=== PATIENT | male | born 1990 | race Caucasian/White ===

== ENCOUNTER 2020-11-29 13:59 | Emergency (ER) | payer OTHER ==
[~2020-11-29] VITALS: Ht 175.3 cm; Wt 73.0 kg
--- NOTE | 2020-11-29 14:04 | PHYS DOC ---
Past History Past Medical History: No Pertinent History Past Surgical History: No Surgical History Smoking: Non-smoker Alcohol Use: Occasionally Drug Use: Marijuana Adult General Chief Complaint Chief Complaint: MECHANICAL FALL HPI HPI Patient is a 30-year-old male presenting via POV for a fall. Patient who is otherwise healthy with no other medical issues or daily medications was getting out of his car at [facility] with sister and was vaping when he fell and hit his head very hard per report. The actual fall was not witnessed but sister denies any obvious areas where he could have suffered a mechanical fall. Patient was subsequently put back in car and transported to our ER for evaluation. Patient reports focal pain to posterior head; otherwise, no other symptoms. No vision changes, chest pain, shortness of breath, abdominal pain, dysuria, bladder or bowel incontinence, no change in motor or sensory or neuro function. He is not on any blood thinners, denies tobacco alcohol and illicit drug use and reports he was vaping an unknown cartridge that he bought at local smoke shop. Sister denies any significant family history of congenital and/or other pertinent illnesses Review of Systems Review of Systems Fourteen body systems of review of systems have been reviewed. See HPI for pert inent positives and negative responses, other ghotra all other systems are negative, non-pertinent or non-contributory Allergies Allergies Allergies Coded Allergies Type Severity Reaction Last Updated Verified No Known Drug Allergies 01/23/16 No Physical Exam Physical Exam Constitutional: Pt is oriented to person but not place or time. No obvious distress but looks pale and lethargic HEENT: Head: Normocephalic and atraumatic without any palpable abnormalities such as crepitus or lacerations External ears unremarkable negative mandujano sign Conjunctivae and EOM are normal. Pupils are equal, round, and reactive to light. Oropharynx is clear and moist. No hematomas or lacerations or abrasions to face or scalp OP clear, no blood, no malocclusion, dentition intact Nares clear, no nasal septal hematoma Midface stable Neck: C-spine midline tender without appreciable step-offs Cardiovascular: Normal rate, regular rhythm and normal heart sounds. Pulmonary/Chest: Effort normal and breath sounds normal. No respiratory distress. No wheezes. CTA bilaterally Abdominal: Soft. Bowel sounds are normal. Pt exhibits no distension. There is no tenderness. Musculoskeletal: No bony tenderness to extremities, no deformities, full ROM extremities Chest wall stable Pelvis stable and non-tender No vertebral TTP and spine without stepoffs Neurological: Pt is alert and oriented to person, place, and time but does appear lethargic an d requires repetitive questioning at times Moving all extremities willfully, able to wiggle all fingers and toes Alert and oriented x 3 Motor and sensory function intact No saddle anesthesia Downgoing toes bilaterally with stimulation Skin: Skin is warm and dry. No abrasions, no lacerations. Patient does appear very pale Psychiatric: Behavior is appropriate for situation Current Patient Data Vital Signs Vital Signs Date Time Temp Pulse Resp B/P (MAP) Pulse Ox O2 Delivery O2 Flow Rate FiO2 11/29/20 14:10 98.1 72 16 111/69 (83) 98 Vital Signs Date Time Temp Pulse Resp B/P (MAP) Pulse Ox O2 Delivery O2 Flow Rate FiO2 11/29/20 14:10 98.1 72 16 111/69 (83) 98 Lab Results Laboratory Tests Test 11/29/20 13:55 White Blood Count 11.5 x10^3/uL Red Blood Count 4.95 x10^6/uL Hemoglobin 15.1 g/dL Hematocrit 45.0 % Mean Corpuscular Volume 91 fL Mean Corpuscular Hemoglobin 31 pg Mean Corpuscular Hemoglobin Concent 34 g/dL Red Cell Distribution Width 13.0 % Platelet Count 209 x10^3/uL Neutrophils (%) (Auto) 43 % Lymphocytes (%) (Auto) 44 % Monocytes (%) (Auto) 10 % Eosinophils (%) (Auto) 2 % Basophils (%) (Auto) 0 % Neutrophils # (Auto) 4.9 x10^3uL Lymphocytes # (Auto) 5.1 x10^3/uL Monocytes # (Auto) 1.1 x10^3/uL Eosinophils # (Auto) 0.3 x10^3/uL Basophils # (Auto) 0.0 x10^3/uL Sodium Level 141 mmol/L Potassium Level 3.3 mmol/L Chloride Level 105 mmol/L Carbon Dioxide Level 25 mmol/L Anion Gap 11 Blood Urea Nitrogen 15 mg/dL Creatinine 1.1 mg/dL Estimated GFR (Cockcroft-Gault) 78.6 BUN/Creatinine Ratio 14 Glucose Level 109 mg/dL Calcium Level 9.0 mg/dL Total Bilirubin 0.9 mg/dL Aspartate Amino Transf (AST/SGOT) 26 U/L Alanine Aminotransferase (ALT/SGPT) 22 U/L Alkaline Phosphatase 71 U/L Creatine Kinase 228 U/L Troponin I Quantitative < 0.017 ng/mL Total Protein 7.1 g/dL Albumin 4.7 g/dL Albumin/Globulin Ratio 2.0 Ethyl Alcohol Level < 10 mg/dL Current Medications Medications (Trade) Dose Ordered Sig/Mary Route PRN Reason Start Time Stop Time Status Last Admin Dose Admin Ondansetron HCl (Zofran) 4 mg STK-MED ONCE .ROUTE 11/29/20 14:49 11/29/20 14:49 DC EKG EKG EKG ordered and interpreted by myself 1436 hrs. as sinus rhythm at 69 bpm, unremarkable intervals Radiology/Procedures Radiology/Procedures STUDY: 1. CT head without contrast 2. CT cervical spine without contrast INDICATION: Syncope with fall on the back of his head. Patient complaining of posterior neck and head pain COMPARISON: None available TECHNIQUE: Axial CT imaging of the head and cervical spine performed without the use of intravenous contrast. Sagittal and coronal reformats were obtained. One or more of the following individualized dose reduction techniques were utilized for this examination: 1. Automated exposure control 2. Adjustment of the mA and/or kV according to patient size 3. Use of iterative reconstruction technique. FINDINGS: CT HEAD: There is left hemispheric subarachnoid hemorrhage. The ventricles are midline without evidence of dilatation. Normal prado-white differentiation is maintained. There is no intraparenchymal hemorrhage or mass. There is trace amount of pneumocephalus in the left occipital region and posterior fossa. Visualized orbits, paranasal sinuses and the mastoid air cells appear grossly unremarkable. CT CERVICAL SPINE: Normal sagittal alignment is preserved. Craniocervical and C1-2 articulation appears maintained. The vertebral body heights and intervertebral disc spaces are maintained. There is no anne or retrolisthesis. No acute compression fracture. No prevertebral soft tissue swelling is identified. Airway is maintained. IMPRESSION: CT HEAD: 1. Left hemispheric subarachnoid hemorrhage with small amount of pneumocephalus in the left occipital region and posterior fossa. Although a fracture is not seen, however given history of trauma occult fracture involving the occipital bone is suspected. CT CERVICAL SPINE: 1. No acute abnormality seen in the C-spine. Electronically signed by: Serena Walker MD (11/29/2020 2:44 PM) [facility] ////////////////////// INDICATION: Reason: SYNCOPE / Spl. Instructions: / History: COMPARISON: None. FINDINGS: Single view of chest obtained. No focal airspace consolidation or edema. Cardiac silhouette is unremarkable. No gross osseous destructive lesion. IMPRESSION: * No focal airspace consolidation. Electronically signed by: Ye Stevens MD (11/29/2020 2:50 PM) [id number] Heart Score C/O Chest Pain: No HEART Score for Chest Pain: HEART Score for Chest Pain Response (Comments) Value History Slighlty/Non-Suspicious 0 ECG Normal 0 Age < 45 0 Risk Factors No Risk Factors 0 Troponin < Normal Limit 0 Total 0 Risk Factors: Risk Factors: DM, Current or recent (<one month) smoker, HTN, HLP, family hist ory of CAD, obesity. Risk Scores: Risk Factors: DM, Current or recent (<one month) smoker, HTN, HLP, family history of CAD, obesity. Course & Med Decision Making Course & Med Decision Making ABCs unremarkable. HPI, physical exam and comprehensive diagnostic work-up ensued concerning for individual with subarachnoid hemorrhage I discussed findings with patient and sister at bedside, patient still had full capacity and decision making at time of discussion and was amenable for transfer for higher acuity of care. He reiterates he is full CODE STATUS at present I disclosed I am unsure etiology of patient's subarachnoid hemorrhage, did this occur and then patient fell to ground? Or did patient fall and from trauma of said fall suffer a subarachnoid hemorrhage? [facility] was contacted and case discussed, patient was excepted under the care of Dr. Atkins a trauma physician therefore intake, admission, and further medical management Air ambulance services were contacted and initially accepted to transfer patient; however, due to poor weather [place] base As such, EMS was contacted and patient was transferred emergently to [facility] for admission and higher acuity of care Critical Care Time This patient required critical care. Due to the fact that the patient required a significant amount of one on one physician - patient contact time, ordering and review of studies, arranging urgent treatment with development of a management plan, evaluation of patients response to treatment with frequent reassessments, and discussions with other providers this patient required 40 minutes of crit ical care time. Critical care time was indicated due to the inherent instability and/or potential for instability in this patient. The critical care time that is allocated to this patient is above and beyond any time spent on any other billable procedures performed on this patient. Dragon Disclaimer Dragon Disclaimer This electronic medical record was generated, in whole or in part, using a voice recognition dictation system. Departure Departure: Impression: Primary Impression: Subarachnoid hemorrhage Disposition: [address] [facility]) Admitting Physician: Other (dr atkins) Condition: CRITICAL Referrals: PCP,NO (PCP) COLIN GOODWIN DO Nov 29, 2020 14:04
[2020-11-29 14:38] LABS: BASO % 0 % (0-3); EOS # 0.3 x10^3/uL (0.0-0.7); EOS % 2 % (0-3); HEMOGLOBIN 15.1 g/dL (13.0-17.5); LYMPH # 5.1 x10^3/uL (1.0-4.8); LYMPH % 44 % (24-48); MEAN CORPUSCULAR HEMOGLOBIN 31 pg (25-35); MEAN CORPUSCULAR HGB CONC 34 g/dL (31-37); MEAN CORPUSCULAR VOLUME 91 fL (79-100); MONO # 1.1 x10^3/uL (0.0-1.1); MONO % 10 % (0-9); NEUT # 4.9 x10^3uL (1.8-7.7); NEUT % 43 % (31-73); PLATELET COUNT 209 x10^3/uL (140-400); RED BLOOD COUNT 4.95 x10^6/uL (4.30-5.70); WHITE BLOOD COUNT 11.5 x10^3/uL (4.0-11.0)
[2020-11-29 14:44] LABS: ALBUMIN 4.7 g/dL (3.4-5.0); CREATININE 1.1 mg/dL (0.7-1.3); GFR 78.6; POTASSIUM 3.3 mmol/L (3.5-5.1); TOTAL BILIRUBIN 0.9 mg/dL (0.2-1.0); TOTAL PROTEIN 7.1 g/dL (6.4-8.2)
[2020-11-29 14:45] VITALS: BP 120/76
--- NOTE | 2020-11-29 14:46 | RAD ---
FOR INTERNAL CODING PURPOSES Critical result: Findings discussed with Dr. Hernandez at 11/29/2020 2:35 PM. RESULT CODE: STUDY: 1. CT head without contrast 2. CT cervical spine without contrast INDICATION: Syncope with fall on the back of his head. Patient complaining of posterior neck and hea d pain COMPARISON: None available TECHNIQUE: Axial CT imaging of the head and cervical spine performed without the use of intravenous contrast. Sagittal and coronal reformats were obtained. One or more of the following individualized dose reduction techniques were utilized for this examinat ion: 1. Automated exposure control 2. Adjustment of the mA and/or kV according to patient size 3. Use of iterative reconstruction technique. FINDINGS: CT HEAD: There is left hemispheric subarachnoid hemorrhage. The ventricles are midline without evidence of dil atation. Normal prado-white differentiation is maintained. There is no intraparenchymal hemorrhage or mass. There is trace amount of pneumocephalus in the left occipital region and posterior fossa. Visualized orbits, paranasal sinuses and the mastoid air cells appear grossly unremarkable. CT CERVICAL SPINE: Normal sagittal alignment is preserved. Craniocervical and C1-2 articulation appears maintained. The vertebral body heights and intervertebral disc spaces are maintained. There is no anne or retrolist hesis. No acute compression fracture. No prevertebral soft tissue swelling is identified. Airway is m aintained. IMPRESSION: CT HEAD: 1. Left hemispheric subarachnoid hemorrhage with small amount of pneumocephalus in the left occipita l region and posterior fossa. Although a fracture is not seen, however given history of trauma occult fracture involving the occipital bone is suspected. CT CERVICAL SPINE: 1. No acute abnormality seen in the C-spine. Electronically signed by: Serena Walker MD (11/29/2020 2:44 PM) [facility]
--- NOTE | 2020-11-29 14:46 | EKG ---
[address] [address] Test Date: 2020-11-29 Test Time: 14:31:01 Pat Name: BENITA MORSE Department: Room: Gender: M Radiation Physicist: MINI : 1990 Requested By: COLIN GOODWIN Order Number: [id number] Reading MD: Measurements Intervals [place] Rate: 69 P: 66 WV: 154 QRS: 59 QRSD: 114 T: 57 QT: 406 QTc: 441 Interpretive Statements SINUS RHYTHM NORMAL ECG RI6.02 No previous ECG available for comparison
[2020-11-29] MEDS ORDERED: ONDANSETRON PF 4 MG/2 ML VIAL. ONE (14:49)
--- NOTE | 2020-11-29 14:53 | RAD ---
INDICATION: Reason: SYNCOPE / Spl. Instructions: / History: COMPARISON: None. FINDINGS: Single view of chest obtained. No focal airspace consolidation or edema. Cardiac silhouette is unremarkable. No gross osseous destructive lesion. IMPRESSION: * No focal airspace consolidation. Electronically signed by: Ye Stevens MD (11/29/2020 2:50 PM) [id number]
== END 2020-11-29 15:31 | disposition short-term general hospital (02) ==
LOC: ER 13:59
DX: S06.6X0A Traumatic subarachnoid hemorrhage without loss of consciousness, initial encounter (principal); W20.8XXA Other cause of strike by thrown, projected or falling object, initial encounter; Y93.89 Activity, other specified; Y92.89 Other specified places as the place of occurrence of the external cause; Y99.8 Other external cause status
CPT/HCPCS: 36415; 70450; 71045; 72125; 80053; 82550; 84484; 85025; 93005; 99291; G0480

== ENCOUNTER 2020-12-03 10:18 | Emergency (ER) | payer SELFPAY ==
[~2020-12-03] VITALS: Ht 175.3 cm; Wt 64.6 kg
[2020-12-03 10:25] VITALS: BP 115/79
--- NOTE | 2020-12-03 10:43 | PHYS DOC ---
Past History Additional Past Medical Histor: Subarachnoid hemorrhage Past Surgical History: No Surgical History Smoking: Non-smoker Alcohol Use: Occasionally Drug Use: Marijuana General Adult EDM: Chief Complaint: EARACHE/EAR PAIN HPI: HPI: 30-year-old male presents with report of pressure to left ear with bruising that was noted behind his ear x2 days. Patient was recently seen on 11/29/20 after hitting his head after mechanical fall. At that time CT imaging of head and cervical spine was obtained noting a subarachnoid hemorrhage. Patient was transferred to for further management. Patient and significant other report patient underwent CT angio imaging which noted no further acute process patient patient was subsequently cleared and discharged home. Significant other reports googling patient's symptoms and call with who instructed patient to present to the ER for further evaluation. Patient reports he is prescribed Keppra. R eports he has had some nausea without vomiting. Reports taking Tylenol prior to arrival. Patient does reports some "room spinning" sensation if he lays on his left ear. Review of Systems: Review of Systems: Constitutional: Denies fever or chills Eyes: Denies redness or eye pain HENT: Denies nasal congestion or sore throat; reports left ear pressure and pain Respiratory: Denies cough or shortness of breath Cardiovascular: Denies chest pain or palpitations GI: Denies abdominal pain or vomiting; reports nausea : Denies dysuria or hematuria Musculoskeletal: Denies back pain or joint pain Integument: Denies rash; reports bruising behind left ear Neurologic: Reports headache; denies focal weakness or sensory changes; reports dizziness Complete systems were reviewed and found to be within normal limits, except as documented in this note. Allergies: Allergies: Allergies Coded Allergies Type Severity Reaction Last Updated Verified No Known Drug Allergies 01/23/16 No Physical Exam: PE: Constitutional: Well developed, well nourished, no acute distress, non-toxic appearance HENT: Normocephalic, atraumatic, TM clear on right, left TM with old blood, postauricular ecchymosis noted, some mastoid process tenderness Eyes: PERRL, EOMI, conjunctiva normal, no discharge, no nystagmus Neck: Normal range of motion, no midline or paraspinal tenderness, supple Lungs & Thorax: No respiratory distress, equal chest rise and fall Skin: Warm, dry, no erythema, postauricular ecchymosis on left Back: No midline tenderness, no CVA tenderness Extremities: No tenderness, ROM intact, no edema Neurologic: Alert and oriented X 3, normal motor function, normal sensory function, no focal deficits noted Psychologic: Affect normal, judgment normal EKG: EKG: [] Radiology/Procedures: Radiology/Procedures: PROCEDURE: CT HEAD WO CONTRAST EXAM: CT head without contrast INDICATION: Pain in left postauricular ecchymosis. History of recent subarachnoid hemorrhage after fall. COMPARISON: CT head 11/29/2020 TECHNIQUE: Axial CT imaging through the head without intravenous contrast. One or more of the following individualized dose reduction techniques were utilized for this examination: 1. Automated exposure control 2. Adjustment of the mA and/or kV according to patient size 3. Use of iterative reconstruction technique. FINDINGS: Left hemispheric subarachnoid hemorrhage has decreased. The left frontotemporal subdural hematoma has slightly increased, now measuring up to 8 mm in thickness, previously 6 mm. Tiny subdural hematoma along the left occipital lobe measures up to 3 mm in thickness is unchanged. Decreased pneumocephalus. Trace blood layering along the cerebellar tentorium is unchanged. There is a new 9 mm intraparenchymal contusion with surrounding hypoattenuation in the left frontal lobe, 1.7 cm contusion in the anterior inferior right frontal lobe with surrounding hypoattenuation, and 1.1 cm contusion anterior right temporal lobe with surrounding hypoattenuation. The ventricles and sulci are normal. No significant midline shift. Basal cisterns are clear. There is no displaced fracture. Paranasal sinuses and mastoid air cells are clear. Globes and orbits are intact. Decreased but persistent small left posterior scalp hematoma. IMPRESSION: 1. New small parenchymal contusions with surrounding hypoattenuation in the left frontal lobe, anterior inferior right frontal lobe, and anterior right temporal lobe. 2. Slightly increased left frontotemporal subdural hematoma. No significant change in tiny left occipital subdural hematoma and trace blood layering along the cerebellar tentorium. 3. Decreased left hemispheric subarachnoid hemorrhage. FOR INTERNAL CODING PURPOSES Critical result: Findings discussed with Dr. Soto at 12/03/2020 11:15 AM. RESULT CODE: (C) Electronically signed by: Marilyn Petersen MD (12/03/2020 11:25 AM) [id number] Heart Score: C/O Chest Pain: N/A Course & Med Decision Making: Course & Med Decision Making Pertinent Imaging studies reviewed. (See chart for details) Patient with history of mechanical fall with head trauma causing subarachnoid hemorrhage for which patient was initially seen here at [facility] on 11/29/2020. Patient subsequent transferred to who reportedly cleared patient after further imaging. Patient concern for left-sided postauricular ecchymosis and some reported fullness to his ear. Denies further trauma. Patient neurologically intact. No midline cervical spine tenderness noted. Ecchymosis likely secondary to recent fall. CT head obtained with findings that area likely seqeula of prior injury. However significant change from initial CT from 11/29/20. Discussed case with with images clouded over. Discussed with Dr. Michael Gutierres (neurosurgery) who compared new imaging to prior imaging at from 11/30/20 which he reports new imaging has improved and reports patient is safe for discharge home. Patient previously took Tylenol prior to arrival. Denies any current nausea. Patient advised to continue previously prescribed Keppra. Ice applied. Prescription for pain medication provided. Appears to be some vertiginous component. A prescription for meclizine also provided. Patient stable for discharge with outpatient follow-up with PCP. Discussed findings and plan with patient and significant other, who acknowledge understanding and agreement. Georges Disclaimer: Georges Disclaimer: This electronic medical record was generated, in whole or in part, using a voice recognition dictation system. Departure Departure: Impression: Primary Impression: Headache Qualified Codes: R51.9 - Headache, unspecified Additional Impressions: Hx of subarachnoid hemorrhage Ecchymosis Vertigo Disposition: HOME / SELF CARE / HOMELESS Condition: STABLE Referrals: PCP,NO (PCP) Patient Instructions: Subarachnoid Hemorrhage, Vertigo, [id number] Additional Instructions: ICE area of discomfort 20 min on then leave off next [address] mins[address] May follow with Dr[address] Michael Gutierres (neurosurgery) at as needed for further concerns and for re-evaluation. Scripts Meclizine Hcl (MECLIZINE HCL) 25 Mg Tablet 1 TAB PO PRN TID PRN for DIZZINESS, #20 TAB Prov: ANNY SOTO DO 12/03/20 Hydrocodone Bit/Acetaminophen (HYDROCODONE-APAP 5-325 ) 1 Each Tablet 0.5-1 TAB PO PRN Q6HRS PRN for PAIN, #10 TAB 0 Refills Prov: ANNY SOTO DO 12/03/20 ANNY SOTO DO Dec 03, 2020 10:42
--- NOTE | 2020-12-03 11:28 | RAD ---
EXAM: CT head without contrast INDICATION: Pain in left postauricular ecchymosis. History of recent subarachnoid hemorrhage after fa ll. COMPARISON: CT head 11/29/2020 TECHNIQUE: Axial CT imaging through the head without intravenous contrast. One or more of the following individualized dose reduction techniques were utilized for this examinat ion: 1. Automated exposure control 2. Adjustment of the mA and/or kV according to patient size 3. Use of iterative reconstruction technique. FINDINGS: Left hemispheric subarachnoid hemorrhage has decreased. The left frontotemporal subdural hematoma has slightly increased, now measuring up to 8 mm in thickness, previously 6 mm. Tiny subdural hematoma a long the left occipital lobe measures up to 3 mm in thickness is unchanged. Decreased pneumocephalus. Trace blood layering along the cerebellar tentorium is unchanged. There is a new 9 mm intraparenchymal contusion with surrounding hypoattenuation in the left frontal l obe, 1.7 cm contusion in the anterior inferior right frontal lobe with surrounding hypoattenuation, a nd 1.1 cm contusion anterior right temporal lobe with surrounding hypoattenuation. The ventricles and sulci are normal. No significant midline shift. Basal cisterns are clear. There is no displaced fracture. Paranasal sinuses and mastoid air cells are clear. Globes and orbits are inta ct. Decreased but persistent small left posterior scalp hematoma. IMPRESSION: 1. New small parenchymal contusions with surrounding hypoattenuation in the left frontal lobe, anteri or inferior right frontal lobe, and anterior right temporal lobe. 2. Slightly increased left frontotemporal subdural hematoma. No significant change in tiny left occip ital subdural hematoma and trace blood layering along the cerebellar tentorium. 3. Decreased left hemispheric subarachnoid hemorrhage. FOR INTERNAL CODING PURPOSES Critical result: Findings discussed with Dr. Ramires at 12/03/2020 11:15 AM. RESULT CODE: (C) Electronically signed by: Marilyn Petersen MD (12/03/2020 11:25 AM) [id number]
[2020-12-03] MEDS ORDERED: HYDR-2155 PO (12:41)
[2020-12-03] MEDS ORDERED: MECL-75 PO (12:41)
== END 2020-12-03 12:48 | disposition home or self-care (01) ==
LOC: ER 10:18
DX: S00.432A Contusion of left ear, initial encounter (principal); R42 Dizziness and giddiness; R51.9 Headache, unspecified; W18.39XA Other fall on same level, initial encounter; Y93.89 Activity, other specified; Y92.89 Other specified places as the place of occurrence of the external cause; Y99.8 Other external cause status
CPT/HCPCS: 70450; 99284

== ENCOUNTER 2021-07-20 13:58 | Emergency (ER) | payer SELFPAY ==
[~2021-07-20] VITALS: Ht 175.3 cm; Wt 67.8 kg
[~2021-07-20 13:58] MED LIST: HYDR-2155 PO; MECL-75 PO
[2021-07-20 14:10] VITALS: BP 120/75
--- NOTE | 2021-07-20 14:25 | PHYS DOC ---
Past History Additional Past Medical Histor: Subarachnoid hemorrhage Past Surgical History: No Surgical History Smoking: Non-smoker Alcohol Use: Rarely Drug Use: Marijuana General Adult EDM: Chief Complaint: HEAD INJURY/TRAUMA HPI: HPI: 30-year-old male presents after hitting his head. The patient was wearing his 3 dogs back in the house when one of them hit the back of his leg and he fell straight back and hit his head on concrete. He believes he was knocked unconscious. He thinks it was only a couple seconds. There was no one else there. Patient has a history of falling and hitting his head and having a subarachnoid hemorrhage. He denies any nausea or vomiting. Vision is normal. He has a mild headache. He denies any other injuries or complaints. Review of Systems: Review of Systems: Constitutional: Denies fever or chills Eyes: Denies change in visual acuity HENT: Head injury Respiratory: Denies cough or shortness of breath Cardiovascular: Denies chest pain or edema GI: Denies abdominal pain, nausea, vomiting, bloody stools or diarrhea : Denies dysuria Musculoskeletal: Denies back pain or joint pain Integument: Denies rash Neurologic: Denies headache, focal weakness or sensory changes Endocrine: Denies polyuria or polydipsia Lymphatic: Denies swollen glands Psychiatric: Denies depression or anxiety Allergies: Allergies: Allergies Coded Allergies Type Severity Reaction Last Updated Verified No Known Drug Allergies 01/23/16 No Physical Exam: PE: Constitutional: Well developed, well nourished, no acute distress, non-toxic appearance. [] HENT: Normocephalic, atraumatic, bilateral external ears normal, oropharynx moist, no oral exudates, nose normal. [] Eyes: PERRLA, EOMI, conjunctiva normal, no discharge. [] Neck: Normal range of motion, no tenderness, supple, no stridor. [] Cardiovascular: Heart rate regular rhythm, no murmur [] Lungs & Thorax: Bilateral breath sounds clear to auscultation [] Abdomen: Bowel sounds normal, soft, no tenderness, no masses, no pulsatile masses. [] Skin: Warm, dry, no erythema, no rash. [] Back: No tenderness, no CVA tenderness. [] Extremities: No tenderness, no cyanosis, no clubbing, ROM intact, no edema. [] Neurologic: Alert and oriented X 3, normal motor function, normal sensory function, no focal deficits noted. [] Psychologic: Affect normal, judgement normal, mood normal. [] EKG: EKG: [] Radiology/Procedures: Radiology/Procedures: [] Impressions: CT HEAD WITHOUT CONTRAST 07/20/2021 2:43 PM Indication: Fall, history of subarachnoid hemorrhage. Comparison: CT head without contrast December 03, 2020 Procedure: Multidetector CT imaging of the head was performed without the administration of contrast. Findings: There is no evidence of acute intracranial hemorrhage. There is no evidence of acute territorial infarction. Please note that CT is limited for evaluation of acute ischemia. No mass effect or midline shift is identified . The ventricles and basilar cisterns have an appropriate appearance. No abnormal extra-axial fluid collections are seen. No acute osseous changes are identified. Impression: No evidence of acute intracranial abnormality CT DOSING PQRS STATEMENT: One or more of the following individualized dose reduction techniques were utilized for this examination: 1. Automated exposure control 2. Adjustment of the mA and/or kV according to patient size 3. Use of iterative reconstruction technique Electronically signed by: Juan Hernandez MD (07/20/2021 2:51 PM) [id number] DICTATED AND SIGNED BY: JUAN HERNANDEZ MD DATE: 07/20/21 1446 CC: MATTIE BURGOS DO; PCP,NO ~MTH0 0 Heart Score: C/O Chest Pain: N/A Risk Factors: Risk Factors: DM, Current or recent (<one month) smoker, HTN, HLP, family history of CAD, obesity. Risk Scores: Score 0 - 3: 2.5% MACE over next 6 weeks - Discharge Home Score 4 - 6: 20.3% MACE over next 6 weeks - Admit for Clinical Observation Score 7 - 10: 72.7% MACE over next 6 weeks - Early Invasive Strategies Course & Med Decision Making: Course & Med Decision Making Pertinent Labs and Imaging studies reviewed. (See chart for details) The patient's head CT is negative for acute findings. He has had no vomiting or other significant symptoms in the emergency room. He is stable for discharge at this time. [] Dragon Disclaimer: Dragon Disclaimer: This electronic medical record was generated, in whole or in part, using a voice recognition dictation system. Departure Departure: Impression: Primary Impression: Closed head injury Disposition: HOME / SELF CARE / HOMELESS Condition: STABLE Referrals: PCP,NO (PCP) Patient Instructions: Head Injury, Adult, [id number] MATTIE BURGOS DO Jul 20, 2021 14:25
--- NOTE | 2021-07-20 14:53 | RAD ---
CT HEAD WITHOUT CONTRAST 07/20/2021 2:43 PM Indication: Fall, history of subarachnoid hemorrhage. Comparison: CT head without contrast December 03, 2020 Procedure: Multidetector CT imaging of the head was performed without the administration of contrast. Findings: There is no evidence of acute intracranial hemorrhage. There is no evidence of acute territ orial infarction. Please note that CT is limited for evaluation of acute ischemia. No mass effect or midline shift is identified . The ventricles and basilar cisterns have an appropriate appearance. No abnormal extra-axial fluid collections are seen. No acute osseous changes are identified. Impression: No evidence of acute intracranial abnormality CT DOSING PQRS STATEMENT: One or more of the following individualized dose reduction techniques were utilized for this examinat ion: 1. Automated exposure control 2. Adjustment of the mA and/or kV according to patient size 3. Use of iterative reconstruction technique Electronically signed by: Juan Brunner MD (07/20/2021 2:51 PM) [id number]
== END 2021-07-20 16:15 | disposition home or self-care (01) ==
LOC: ER 14:04
DX: S09.8XXA Other specified injuries of head, initial encounter (principal); W18.09XA Striking against other object with subsequent fall, initial encounter; Y93.89 Activity, other specified; Y92.89 Other specified places as the place of occurrence of the external cause; Y99.8 Other external cause status
CPT/HCPCS: 70450; 99284-25